=== PATIENT | female | born 1995 | race Caucasian/White ===

== ENCOUNTER 2017-07-02 12:17 | Emergency (ER) | payer SELFPAY ==
--- NOTE | 2017-07-02 13:27 | EDPHY ---
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 No loss of consciousness. She has been having difficulty staying focused riding a turn paper, complaining of feeling like she is in a fog. She denies: Nausea, vomiting, visual disturbance beyond photophobia, midline C-spine pain, peripheral paresthesia, weakness, numbness, chest pain, back pain, abdominal pain REVIEW OF SYSTEMS: A ten point review of systems was performed and is negative with the exception of the items mentioned in the HPI PAST MEDICAL/SURGICAL HISTORY: no anticoagulant use, prior history of head injury SOCIAL HISTORY: denies alcohol use at time of incident PHYSICAL EXAM 1) GENERAL: Well-developed, well-nourished, alert and oriented. Appears to be in no acute distress. Answering questions appropriately. GCS 15 2) HEAD: Normocephalic, atraumatic. 3) HEENT: Pupils equal, round, reactive to light bilaterally. Negative Horners. Nasopharynx, oropharynx, clear. No deformity or angulation of nose. No septal hematoma. No rhinorrhea. No oral trauma. Ears bilaterally with normal tympanic membranes. No hemotympanum. No fluid or blood in the external auditory canal. No raccoon eyes. No Dennis sign. Teeth are normally aligned with no gross malocclusion, TMJ bilaterally nontender, facial bones nontender including the zygomatic arch, maxilla mandible. 4) NECK: No cervical collar is on. Posterior cervical spine is nontender, no stepoff, no effusion. Full range of motion which does not elicit any midline cervical spine pain, no posterior midline tenderness, no step-off. 5) LUNGS: Clear to auscultation bilaterally, no wheezes, no rhonchi, no retractions. No obvious signs of trauma. No chest wall pain. No flaring, no grunting. Moving symmetrically. No crepitus. 6) HEART: Regular rate and rhythm, 7) ABDOMEN: No guarding, no rebound, no focal tenderness, no peritoneal signs, no signs of trauma, no ecchymosis 8) MUSCULOSKELETAL: Moving all extremities, no focal areas of tenderness, no obvious trauma. 9) BACK: No midline vertebral tenderness, no fluctuance, no step-off, no obvious trauma, no visual or palpable abnormality. 10) SKIN: No laceration. No abrasion 11) NEURO: Awake, alert, and oriented to person, place and time. Answers questions appropriately. There were no obvious focal neurologic abnormalities. No cerebellar dysfunction. Normal steady gait. Upper and lower extremities bilaterally with strength 5 / 5, reflexes 2+. DIFFERENTIAL DIAGNOSIS: Not necessarily in any particular order, my differential diagnosis includes, but is not limited to, concussion, skull fracture, intraparenchymal contusion, subarachnoid, subdural and epidural hematoma. The patient understands that this diagnosis is provisional and can never be 100% accurate. Smoking Status: Never smoked Constitutional: Initial Vital Signs Temperature (C) 37.0 C 07/02/17 12:43 Heart Rate 92 07/02/17 12:43 Respiratory Rate 18 07/02/17 12:43 Blood Pressure 118/80 07/02/17 12:43 O2 Sat (%) 99 07/02/17 12:43 O2 Delivery Mode Room Air Allergies/Adverse Reactions: No Known Allergies Allergy (Unverified 07/02/17 12:46) MDM/Departure - MDM ED Course/Re-evaluation: This patient has no evidence of basilar skull fracture, is GCS 15, nonfocal neurologic exam. I do not think that CT imaging is indicated as I have a low pretest index suspicion for intracranial hemorrhage and/or skull fracture. I have discussed this with her and she is in agreement. I have provided her usual customary head injury precautions and instructions including 2nd impact syndrome. Care of patient under supervision of secondary supervising physician Dr Barkley . - Depart Disposition: Home, Routine, Self-Care Clinical Impression: Activity, ice hockey Head injury due to trauma Qualifiers: Encounter type: initial encounter Qualified Code(s): S09.90XA - Unspecified injury of head, initial encounter Condition: Good Instructions: Head Injury (ED) Additional Instructions: ALTHOUGH THERE IS NO EVIDENCE OF SERIOUS HEAD INJURY AT THIS TIME, DELAYED SIGNS CAN APPEAR 24 TO 48 HOURS AFTER INJURY. WE RECOMMEND THAT YOU DESIGNATE A FRIEND OR FAMILY MEMBER TO OBSERVE YOU OVER THE NEXT FEW DAYS TO ENSURE THAT YOUR CONDITION IS PROGRESSING NORMALLY. PLEASE RETURN TO THE EMERGENCY DEPARTMENT (ED) IMMEDIATELY IF YOU HAVE INCREASED HEADACHE, PERSISTENT HEADACHE , VOMITING, WEAKNESS, CONFUSION OR VISUAL PROBLEMS. WE RECOMMEND THAT YOU DO NOT RESUME CONTACT SPORTS OR ACTIVITIES THAT TAKE COORDINATION OR BALANCE SUCH SKIING OR RIDING A BICYCLE UNTIL CLEARED TO DO SO BY YOUR DOCTOR OR BY A NEUROLOGIST. Stand Alone Forms: School Excuse, Statement of Treatment Referrals: Maria E Campoverde MD [Medical Doctor] - 2-3 days, call for appt.
[2017-07-02 13:46] VITALS: BP 101/76; PULSE 81; RESP 15; TEMP 98.1; O2SAT 96
== END 2017-07-02 13:46 | disposition home or self-care (01) ==
DX: S09.90XA Unspecified injury of head, initial encounter (principal); X58.XXXA Exposure to other specified factors, initial encounter; Y92.214 College as the place of occurrence of the external cause; Y99.8 Other external cause status; Y93.22 Activity, ice hockey